=== PATIENT | female | born 1970 | race African-American/Black ===

== ENCOUNTER 2023-11-03 23:13 | Emergency (ER) | payer OTHER ==
[2023-11-03] MEDS ORDERED: Aspirin Chewable 81 MG TAB ONE (23:41)
[2023-11-03] MEDS ORDERED: Nitroglycerin 0.4 MG TAB 1 EACH ONE (23:41)
[2023-11-04 00:03] LABS: #Basophils 0.1 10x3/uL (0.0-0.2); #Eosinphils 0.2 10x3/uL (0.0-0.5); #Monocytes 0.8 10x3/uL (0.0-1.1); #Neutrophils 5.9 10x3/uL (1.5-8.4); %Eosinophils 2.5 % (0.0-6.0); %Lymphocytes 25.9 % (18.0-47.0); %Monocytes 8.7 % (0.0-10.0); %Neutrophils 61.6 % (40.0-75.0); Hematocrit 41.7 % (34.9-44.5); Hemoglobin 14.2 g/dL (12.0-15.5); Mean Corpuscular HGB CONC 34.1 g/dL (32.0-36.0); Mean Corpuscular Hemoglobin 29.6 pg (27.0-33.0); Mean Corpuscular Volume 86.9 fl (81.6-98.3); Platelet Count 279 10x3/uL (150-450); RBC Distribution Width 13.2 % (11.5-14.5); White Blood Cell (WBC) Count 9.5 10x3/uL (3.5-10.5)
[2023-11-04 00:26] LABS: ALT (SGPT) 18 U/L (8-55); AST (SGOT) 16 U/L (5-34); Alkaline Phosphatase 69 U/L (40-110); Anion Gap 13 mmol/L (10-20); BUN (Urea Nitrogen) 14 mg/dL (9.8-20.1); Bilirubin, Total 0.5 mg/dL (0.2-1.2); Calc. Creatinine Clearance 0 mL/min (70-130); Calcium 9.2 mg/dL (7.8-10.44); Carbon Dioxide 23 mmol/L (22-29); Chloride 106 mmol/L (98-107); Estimated GFR 59; Globulin 3.7 g/dL (2.4-3.5); Glucose 157 mg/dL (70-105); Lipase 13 U/L (8-78); Potassium 3.7 mmol/L (3.5-5.1); Protein, Total 7.7 g/dL (6.0-8.3); Sodium 138 mmol/L (136-145)
[2023-11-04] MEDS ORDERED: Nitroglycerin 0.4 MG TAB 1 EACH ONE ×2 (00:29→01:13)
[2023-11-04 00:38] LABS: Troponin I Less than 0.010 ng/mL (< 0.028)
[2023-11-04 02:59] LABS: Troponin I Less than 0.010 ng/mL (< 0.028)
[2023-11-04] MEDS ORDERED: Iopamidol 370 76% 100 ML VIAL ONE (09:05)
== END 2023-11-04 03:40 | disposition home or self-care (01) ==
LOC: CSHERS 23:13
DX: R07.89 Other chest pain (principal)
CPT/HCPCS: 71045; 71275; 80053; 83690; 83735; 83880; 84443; 84484; 85025; 93005; 93010